=== PATIENT | female | born 1965 | race Caucasian/White ===

== ENCOUNTER 2016-10-03 22:02 | Observation (INO) | payer BC ==
[~2016-10-03] VITALS: Ht 167.6 cm; Wt 116.7 kg
[2016-10-03] MEDS ORDERED: ASPIRIN 81 MG CHEW TAB ONE (22:27)
[2016-10-03] MEDS ORDERED: KCL CR 20 MEQ TAB PO ONE (22:28)
[2016-10-03] MEDS ORDERED: ED DILTIAZEM DRIP 125 ML IV ONE (22:29)
[2016-10-03] MEDS ORDERED: POTASSIUM CHLOR 10MEQ -ED ONLY 50 ML IV ONE ×2 (22:29→23:14)
[2016-10-04] VITALS (50 sets, daily range): BP systolic 85–126; RESP 18–24; TEMP 97.2–98.4; Ht 167.6 cm; Wt 116.7 kg
[2016-10-04] MEDS: CARDIZEM 1 MG/ML DRIP 125 ML IV SCH ×2 (02:28→14:57)
[2016-10-04] MEDS ORDERED: MISSING DOSE XX ONE ×3 (12:55→21:25)
[2016-10-04] MEDS ORDERED: KCL CR 20 MEQ TAB PO STA (16:40)
[2016-10-04] MEDS ORDERED: DIGOXIN 0.5 MG/2 ML AMP IV STA (16:47)
[2016-10-04] MEDS: DILTIAZEM CD 120 MG CAP PO SCH (17:22)
[2016-10-04] MEDS: KCL CR 20 MEQ TAB PO SCH (17:23)
[2016-10-04] MEDS ORDERED: KCL CR 20 MEQ TAB PO ONE (18:40)
[2016-10-04] MEDS: SOTALOL HCL 80 MG TAB PO SCH (20:14)
[2016-10-04] MEDS: DIGOXIN 0.5 MG/2 ML AMP IV SCH ×2 (20:18→23:34)
[2016-10-04] MEDS ORDERED: CALC CARB 500 MG CHEWTAB PO PRN (20:30)
[2016-10-04] MEDS: DABIGATRAN 150 MG CAP PO SCH (20:46)
[2016-10-05] VITALS (9 sets, daily range): BP systolic 90–108; RESP 18–20; TEMP 97.5–98.1
[2016-10-05] MEDS ORDERED: PANTOPRAZOLE 40 MG TAB PO SCH (07:00)
[2016-10-05] MEDS ORDERED: LEVOTHYROXINE 0.2 MG TAB PO SCH (07:00)
[2016-10-05] MEDS ORDERED: SOLIFENACIN 5 MG TAB PO SCH (09:00)
[2016-10-05] MEDS ORDERED: LOSARTAN/HCTZ 50/12.5 MG TAB PO SCH (09:00)
[2016-10-05] MEDS: DILTIAZEM CD 120 MG CAP PO SCH (09:29)
[2016-10-05] MEDS: DABIGATRAN 150 MG CAP PO SCH (09:29)
[2016-10-05] MEDS: SOTALOL HCL 80 MG TAB PO SCH (09:29)
[2016-10-05] MEDS: KCL CR 20 MEQ TAB PO SCH (09:31)
== END 2016-10-05 12:54 | disposition home or self-care (01) ==
LOC: ENRESERVDT → ENRESERVTM → ER 22:02 → ENPENDDIS 23:58 → EMR 23:58 → PCU2 10-04 01:06 → PCU 10-04 19:37
PROVIDERS: ADMIT Internal Medicine Cardiovascular Disease; ATTEND Internal Medicine Cardiovascular Disease
DX: I48.0 Paroxysmal atrial fibrillation (principal); E87.6 Hypokalemia; I10 Essential (primary) hypertension; E03.9 Hypothyroidism, unspecified; Z79.01 Long term (current) use of anticoagulants; Z79.899 Other long term (current) drug therapy
CPT/HCPCS: 36415; 71010; 80048; 80053; 82550; 83735; 84484; 85025; 85610; 85730; 93005; 93306; 96365; 96366